=== PATIENT | male | born 1925 | race Two or more races ===

== ENCOUNTER 2017-05-10 18:03 | Emergency (ER) | payer MEDICARE, OTHER ==
[~2017-05-10] VITALS: Ht 170.2 cm; Wt 75.7 kg
--- NOTE | 2017-05-10 18:05 | NUR ---
BIB [place] FROM [place], GLF WHILE GETTING OUT OF HIS WHEELCHAIR,LACERATION TO LEFT UPPER EXT.,NO LOC, NAD NOTED, VSS, RESP EVEN AND UNLABORED, PT PUT ON MONITOR, WAITING FOR MD ODEN.
[2017-05-10] MEDS ORDERED: CARB-93 PO (18:08)
--- NOTE | 2017-05-10 18:10 | NUR ---
AT , SPEAKING WITH PT'S DAUGHTER
--- NOTE | 2017-05-10 18:28 | NUR ---
PT TO [facility]
[2017-05-10 20:23] VITALS: BP 138/78
== END 2017-05-10 20:23 | disposition home or self-care (01) ==
LOC: ER 18:05
DX: M54.9 Dorsalgia, unspecified (principal); F03.90 Unspecified dementia, unspecified severity, without behavioral disturbance, psychotic disturbance, mood disturbance, and anxiety; G20 Parkinson's disease; W01.198A Fall on same level from slipping, tripping and stumbling with subsequent striking against other object, initial encounter; Y93.89 Activity, other specified; Y92.89 Other specified places as the place of occurrence of the external cause; Y99.8 Other external cause status
CPT/HCPCS: 72128; 72131; 99284; A4606; Z7610